=== PATIENT | female | born 1960 | race Caucasian/White ===

== ENCOUNTER 2017-10-29 15:31 | Emergency (ER) | payer OTHER ==
[~2017-10-29] VITALS: Ht 170.2 cm; Wt 97.5 kg
[~2017-10-29 15:31] MED LIST: CELEBREX400 MG; DIOVAN160 M1; KETO10TA2 PO
== END 2017-10-29 20:03 | disposition home or self-care (01) ==
LOC: ER 15:31
DX: K80.20 Calculus of gallbladder without cholecystitis without obstruction (principal)

== ENCOUNTER 2017-11-03 15:17 | Emergency (ER) | payer OTHER ==
[~2017-11-03] VITALS: Ht 170.2 cm; Wt 95.3 kg
[2017-11-03] MEDS ORDERED: CIPROFLOXACIN500 M1 (15:35)
[2017-11-03] MEDS ORDERED: LEVSIN/SL0.125 MG (15:35)
[2017-11-03] MEDS ORDERED: TRAMADOL HCL50 MG (15:35)
== END 2017-11-03 23:43 | disposition home or self-care (01) ==
LOC: ER 15:17
DX: N20.0 Calculus of kidney (principal); N39.0 Urinary tract infection, site not specified